=== PATIENT | male | born 1985 ===

== ENCOUNTER 2017-07-16 17:56 | Emergency (ER) | payer SELFPAY ==
[~2017-07-16 17:56] MED LIST: ISOVUE-370 76%-LOCM 1 ML ONE
[2017-07-16 18:25] LABS: #Eosinphils 0.1 thou/uL (0.0-0.7); #Lymphocytes 2.6 thou/uL (1.20-3.40); #Monocytes 0.9 thou/uL (0.11-0.59); #Neutrophils 9.3 thou/uL (1.40-6.50); %Basophils 0.2 % (0.0-1.0); %Lymphocytes 20.3 % (21.0-51.0); %Monocytes 6.6 % (0.0-10.0); %Neutrophils 71.9 % (42.0-75.0); Mean Corpuscular HGB CONC 35.3 g/dL (32.0-36.0); Mean Corpuscular Hemoglobin 31.3 pg (27.0-31.0); Mean Corpuscular Volume 88.6 fl (80.0-94.0); Mean Platelet Volume 7.8 fL (7.4-10.4); Platelet Count 248 thou/uL (130-400); RBC Distribution Width 10.7 % (11.5-14.5); Red Blood Cell (RBC) Count 4.78 mill/uL (4.70-6.10); White Blood Cell (WBC) Count 12.9 thou/uL (4.8-10.8)
[2017-07-16 18:46] LABS: ALT (SGPT) 77 U/L (8-55); AST (SGOT) 43 U/L (5-34); Albumin 4.3 g/dL (3.5-5.0); Alkaline Phosphatase 88 U/L (40-150); Anion Gap 14 mmol/L (10-20); BUN (Urea Nitrogen) 11 mg/dL (8.9-20.6); Bilirubin, Total 0.7 mg/dL (0.2-1.2); Calc. Creatinine Clearance 0 mL/min (70-130); Calcium 9.2 mg/dL (7.8-10.44); Carbon Dioxide 24 mmol/L (22-29); Chloride 104 mmol/L (98-107); Estimated GFR-MDRD Greater than 90; Globulin 3.2 g/dL (2.4-3.5); Glucose 94 mg/dL (70-105); Potassium 3.6 mmol/L (3.5-5.1); Protein, Total 7.5 g/dL (6.0-8.3); Sodium 138 mmol/L (136-145)
--- NOTE | 2017-07-16 19:01 | RAD ---
TWO VIEWS LEFT HIP 07/16/17 HISTORY: Right hip pain. Difficulty bearing weight on right hip. FINDINGS: There is no evidence of a fracture, dislocation, or other osseous abnormality involving the left hip. IMPRESSION: No acute osseous abnormality left hip. POS: [facility]
--- NOTE | 2017-07-16 19:02 | RAD ---
PORTABLE AP PELVIS RADIOGRAPH 07/16/17 HISTORY: Left hip pain which began hurting at work. Difficult to bear weight. FINDINGS: There is no fracture or dislocation. The hips have a symmetric appearance bilaterally. IMPRESSION: No acute osseous abnormality. POS: [facility]
--- NOTE | 2017-07-16 19:11 | CT ---
CT ABDOMEN AND PELVIS WITH IV CONTRAST: 07/16/17 HISTORY: Left lower quadrant abdominal pain that started a couple of days ago. Pain is now worse. COMPARISON: None available. FINDINGS: There is dependent bibasilar atelectasis. Lung bases are otherwise clear. The liver demonstrates decreased attenuation likely attributable to fatty infiltration. The spleen, pancreas, bilateral adrenal glands, left kidney, abdominal aorta and urinary bladder demo nstrate a normal CT appearance. There is a subcentimeter too small to characterize hypodense lesion mid portion right kidney. The appendix is visualized and normal in caliber. There is colonic diverticulosis, and there is a focal area of wall thickening involving the mid porti on of the descending colon with adjacent pericolonic inflammatory changes seen likely attributable to diverticulitis. No free intraperitoneal gas is seen and there is no fluid collection seen to suggest an abscess. Loops of small bowel are normal in caliber. IMPRESSION: 1. Acute diverticulitis involving the descending colon. Followup evaluation is recommended after treatment. 2. Fatty infiltration of the liver. 3. Punctate nonobstructing calculus mid portion right kidney in addition to subcentimeter too sm all to characterize hypodense lesion in the right kidney. POS: [facility]
[2017-07-16] MEDS ORDERED: Ciprofloxacin 500 MG TAB ONE (19:33)
[2017-07-16] MEDS ORDERED: metroNIDAZOLE 250 MG TAB ONE (19:33)
== END 2017-07-16 19:47 | disposition home or self-care (01) ==
LOC: ERS 17:56
DX: K57.32 Diverticulitis of large intestine without perforation or abscess without bleeding (principal); F17.210 Nicotine dependence, cigarettes, uncomplicated
CPT/HCPCS: 36415; 72170; 74177; 80053; 85025; 96360; 99406